=== PATIENT | female | born 1960 | race American Indian/Alaskan Native ===

== ENCOUNTER 2017-06-04 20:44 | Emergency (ER) | payer MEDICARE ==
[2017-06-04 21:30] VITALS: RESP 18
[2017-06-04 23:13] LABS: SQUAMOUS EPITHIAL 2 /hpf (0-5); URINE BACTERIA OCC (<OCC); URINE BILIRUBIN NEGATIVE (NEGATIVE); URINE BLOOD NEGATIVE (NEGATIVE); URINE CLARITY Clear (Clear); URINE COLOR Straw (YELLOW); URINE GLUCOSE (UA) NORMAL (Normal); URINE LEUKOCYTE ESTERASE NEG Leu/uL (Negative); URINE NITRATE NEGATIVE (NEGATIVE); URINE PROTEIN NEGATIVE (NEGATIVE)
[2017-06-04 23:47] VITALS: BP 140/87; PULSE 60; TEMP 98.3
[2017-06-04 23:51] VITALS: O2SAT 99
--- NOTE | 2017-06-04 23:51 | C.PDOC ---
History Of Present Illness 57 year old with medical history of hypertension, who presents to the emergency department with a complaint of left-sided mid-back pain worsen with movement and ambulation intermittently for 2 months. Denied any trauma, difficulty urinating, bloody urine, weakness, numbness or abdominal pain. PMD: Thiago Pineda MD Time Seen by Provider: 06/04/17 22:27 Chief Complaint (Nursing): Medical Clearance History Per: Patient History/Exam Limitations: no limitations Onset/Duration Of Symptoms: Other (x2-3 months) Current Symptoms Are (Timing): Still Present Past Medical History Reviewed: Historical Data, Nursing Documentation, Vital Signs Vital Signs: Last Vital Signs Temp 98.3 F 06/04/17 23:46 Pulse 60 06/04/17 23:46 Resp 18 06/04/17 23:46 BP 140/87 06/04/17 23:46 Pulse Ox 99 06/05/17 00:13 - Medical History PMH: HTN Denies: No Chronic Diseases, Chronic Kidney Disease Surgical History: Denies: No Surg Hx Family History: States: Unknown Family Hx - Social History Hx Alcohol Use: Yes (socially) Hx Substance Use: No - Immunization History Hx Influenza Vaccination: Yes Hx Pneumococcal Vaccination: No Review Of Systems Except As Marked, All Systems Reviewed And Found Negative. Gastrointestinal: Negative for: Abdominal Pain Genitourinary: Negative for: Dysuria, Hematuria Musculoskeletal: Positive for: Back Pain (left-sided midline). Negative for: Other (trauma) Neurological: Negative for: Weakness, Numbness Physical Exam - Physical Exam Appears: Well, No Acute Distress Cardiovascular: Rhythm Regular Respiratory: Normal Breath Sounds, No Decreased Breath Sounds, No Wheezing Gastrointestinal/Abdominal: Normal Exam, Soft, No Tenderness Back: No CVA Tenderness (bilateral), Vertebral Tenderness (left-sided midline radiating to left axillary area) Extremity: Normal ROM (lower), No Tenderness, No Pedal Edema Neurological/Psych: Oriented x3, Normal Speech, Normal Cognition, Normal Sensation ED Course And Treatment O2 Sat by Pulse Oximetry: 99 (RA) Pulse Ox Interpretation: Normal Medical Decision Making Medical Decision Making: Initial Impression: Back pain Initial Plan: * Motrin 600mg PO * UA On reassessment, Pain has decreased. UA reviewed Pt understand to follow up with PMD or further evaluation and return precuations d/w pt who understand and agreed with plan Scribe Attestation: Documented by Clotilde Sanchez, acting as a scribe for Shantel Peraza PA-C. Provider Scribe Attestation: All medical record entries made by the Scribe were at my direction and personally dictated by me. I have reviewed the chart and agree that the record accurately reflects my personal performance of the history, physical exam, medical decision making, and the department course for this patient. I have also personally directed, reviewed, and agree with the discharge instructions and disposition. Disposition Counseled Patient/Family Regarding: Diagnosis, Need For Followup, Rx Given - Disposition Referrals: Thiago Pineda MD [Staff Provider] - Disposition: HOME/ ROUTINE Disposition Time: 23:45 Condition: STABLE Additional Instructions: Take meds as directed Follow up with PMD Return to ER if worrse Instructions: Back Pain (ED) Forms: [facility] (roll.to) Connect (Guamanian) - Clinical Impression Clinical Impression: Back pain
== END 2017-06-05 00:07 | disposition home or self-care (01) ==
LOC: C.ER 20:44
DX: M54.9 Dorsalgia, unspecified (principal)

== ENCOUNTER 2018-02-14 10:48 | Observation (INO) | payer MEDICARE ==
[2018-02-14] MEDS ORDERED: Nitroglycerin 2% Ointment Foilpak UD TOP STA (11:47)
[2018-02-14 12:05] LABS: BASO % 0.5 % (0.0-2.0); EOS % 0.7 % (0.0-4.0); HEMOGLOBIN 13.2 g/dL (11.0-16.0); LYMPH # 1.3 K/uL (1.0-4.3); LYMPH % 21.1 % (20.0-40.0); MEAN CORPUSCULAR HEMOGLOBIN 30.6 pg (27.0-31.0); MEAN CORPUSCULAR HGB CONC 34.3 g/dL (33.0-37.0); MEAN PLATELET VOLUME 8.2 fL (7.2-11.7); MONO # 0.5 K/uL (0.0-0.8); MONO % 7.8 % (0.0-10.0); NEUT # 4.3 K/uL (1.8-7.0); NEUT % 69.9 % (50.0-75.0); RBC 4.34 Mil/uL (3.80-5.20); RED CELL DISTRIBUTION WIDTH 13.2 % (11.5-14.5); WHITE BLOOD COUNT 6.2 K/uL (4.8-10.8)
[2018-02-14 12:16] LABS: INR 1.2; PROTHROMBIN TIME 13.4 SECONDS (9.7-12.2)
[2018-02-14 12:18] LABS: ALB/GLOB RATIO 1.3 (1.0-2.1); ALBUMIN 4.5 g/dL (3.5-5.0); ALT/SGPT 25 U/L (9-52); AST/SGOT 21 U/L (14-36); BLOOD UREA NITROGEN 13 mg/dL (7-17); CALCIUM 9.4 mg/dl (8.6-10.4); GFR NON-AFRICAN AMERICAN > 60
[2018-02-14] MEDS ORDERED: Nitroglycerin 2% Ointment Foilpak UD TOP ONE (12:25)
--- NOTE | 2018-02-14 12:51 | RAD ---
Date of service: 02/14/2018 PROCEDURE: CHEST RADIOGRAPH, 1 VIEW HISTORY: CP COMPARISON: Comparison made with chest radiograph and CTA chest both dated 06/09/2016. FINDINGS: LUNGS: Previously noted minor venous congestive changes improved. No focal consolidation. PLEURA: No pneumothorax or pleural fluid seen. CARDIOVASCULAR: Normal. OSSEOUS STRUCTURES: Mild scoliosis convex right mid to lower thoracic region. Postoperative anterior fixation bilateral laminectomy and posterior fixation lower cervical region. VISUALIZED UPPER ABDOMEN: . Normal. OTHER FINDINGS: None. IMPRESSION: No acute consolidation. See above discussion for additional findings.
[2018-02-14 12:53] LABS: CK-MB 0.57 ng/mL (0.0-3.38)
--- NOTE | 2018-02-14 12:55 | C.PDOC ---
History Of Present Illness 57 year old female patient presents to the ER with c/o 20 minute episode chest pain and pressure in the mid chest with diaphoresis and SOB yesterday. Patient reports she went to see her PMD Dr. Thiago Pineda and feels better. Patient is referred to the ER for further evaluation. Patient denies nausea, vomiting, diarrhea and SOB. Time Seen by Provider: 02/14/18 11:21 Chief Complaint (Nursing): Chest Pain History Per: Patient History/Exam Limitations: no limitations Onset/Duration Of Symptoms: Days (x1) Current Symptoms Are (Timing): Still Present Quality: Pressure Past Medical History Reviewed: Historical Data, Nursing Documentation, Vital Signs Vital Signs: Last Vital Signs Temp 97.9 F 02/14/18 10:53 Pulse 60 02/14/18 10:53 Resp 15 02/14/18 12:28 BP 131/78 02/14/18 12:28 Pulse Ox 99 02/14/18 12:28 - Medical History PMH: HTN Family History: States: Unknown Family Hx - Social History Hx Alcohol Use: Yes (socially) Hx Substance Use: No - Immunization History Hx Influenza Vaccination: Yes Hx Pneumococcal Vaccination: No Review Of Systems Except As Marked, All Systems Reviewed And Found Negative. Constitutional: Positive for: Sweats Cardiovascular: Positive for: Chest Pain (feels better ) Respiratory: Negative for: Shortness of Breath Gastrointestinal: Negative for: Nausea, Vomiting, Diarrhea Physical Exam - Physical Exam Appears: Well, Non-toxic, No Acute Distress Skin: Normal Color, Warm, Dry Head: Normacephalic Eye(s): bilateral: Normal Inspection, EOMI Nose: Normal Oral Mucosa: Moist Throat: Normal Chest: Symmetrical, No Deformity Cardiovascular: Rhythm Regular Respiratory: Normal Breath Sounds Extremity: Normal ROM (x4) Neurological/Psych: Oriented x3, Normal Speech Gait: Steady ED Course And Treatment - Laboratory Results Result Diagrams: 02/14/18 12:01 02/14/18 12:01 ECG: Interpreted By Me, Viewed By Me ECG Rhythm: Sinus Rhythm ECG Interpretation: Normal, No Acute Changes Rate From EC O2 Sat by Pulse Oximetry: 99 (RA) Pulse Ox Interpretation: Normal - Other Rad chest X-Ray: Read By Radiologist Interpretation: Accession No. : [id number]. Patient Name / ID : JYOTHI SHERMAN / [id number]. Exam Date : 02/14/2018 11:50:24 ( Approved ). Study Comment : Sex / Age : F / 57Y. Creator : Eddi Rendon MD. Dictator : Eddi Rendon MD. Chaperon : Coffee Attendant : Eddi Rendon MD. Approver2 : Report Date : 02/14/2018 12:49:23. My Comment : . Date of service: 02/14/2018. PROCEDURE: CHEST RADIOGRAPH, 1 VIEW. HISTORY: CP. COMPARISON: Comparison made with chest radiograph and CTA chest both dated 06/09/2016. FINDINGS: LUNGS: Previously noted minor venous congestive changes improved. No focal consolidation. PLEURA: No pneumothorax or pleural fluid seen. CARDIOVASCULAR: Normal. OSSEOUS STRUCTURES: Mild scoliosis convex right mid to lower thoracic region. Postoperative anterior fixation bilateral laminectomy and posterior fixation lower cervical region. VISUALIZED UPPER ABDOMEN: . Normal. OTHER FINDINGS: None. IMPRESSION: No acute consolidation. See above discussion for additional findings. Progress Note: Impression: referred here from PMD due to chest pain with diaphoresis and SOB. Plans: -- EKG. -- chem lab. -- blood work. -- CXR. -- aspirin. -- nitroglycerin. Reassess: Patient is resting comfortably, is no longer having chest pain or shortness of breath. Patient has no risk factors for pulmonary emboli or DVT. Clinical presentation is not suggestive of aortic dissection. Patient is being discharged home and is being advised to follow up with physician in 1-2 days. Disposition - Disposition Disposition: HOSPITALIZED Disposition Time: 13:53 Condition: FAIR Forms: [facility] (Croatian) - Clinical Impression Clinical Impression: Chest pain - PA / ASSOCIATE PROFESSOR OF FORESTRY / Resident Statement / has reviewed & agrees with the documentation as recorded. - Scribe Statement The provider has reviewed the documentation as recorded by the Erick Oh Do All medical record entries made by the Scribe were at my direction and personally dictated by me. I have reviewed the chart and agree that the record accurately reflects my personal performance of the history, physical exam, medical decision making, and the department course for this patient. I have also personally directed, reviewed, and agree with the discharge instructions and disposition. Decision To Admit - Pt Status Changed To: Hospital Disposition Of: Observation - . Bed Request Type: Telemetry Admitting Physician: Thiago Pineda Patient Diagnosis: Chest pain
[2018-02-14 17:52] VITALS: RESP 20
[2018-02-14] MEDS: Enoxaparin 30 mg Syringe SC SCH (21:14)
[2018-02-15 08:49] VITALS: PULSE 55; TEMP 98; O2SAT 97
[2018-02-15] MEDS: Enoxaparin 30 mg Syringe SC SCH (09:39)
[2018-02-15 09:41] VITALS: BP 135/85
--- NOTE | 2018-02-15 11:07 | CP.PCM.HP ---
History of Present Illness - History of Present Illness History of Present Illness: 57 y/o female , h/o HTN, GERD, Cervical radiculopathy admitted for chest pain 1 days. No fever. No SOB. No injury. Present on Admission - Present on Admission History of DVT/PE: No History of Uncontrolled Diabetes: No Urinary Catheter: No Decubitus Ulcer Present: No Review of Systems - Review of Systems All systems: reviewed and no additional remarkable complaints except (No fever, No injury, No SOB, no weight loss) Past Patient History - Infectious Disease Hx of Infectious Diseases: None - Tetanus Immunizations Tetanus Immunization: Unknown - Past Medical History & Family History Past Medical History?: Yes - Past Social History Smoking Status: Never Smoked Chewing Tobacco Use: No Cigar Use: No Alcohol: None Drugs: Denies Home Situation {Lives}: With Family - CARDIAC Hx Hypertension: Yes - PULMONARY Hx Respiratory Disorders: No - NEUROLOGICAL Hx Neurological Disorder: No - HEENT Hx HEENT Problems: No - RENAL Hx Chronic Kidney Disease: No - ENDOCRINE/METABOLIC Hx Endocrine Disorders: No - HEMATOLOGICAL/ONCOLOGICAL Hx Blood Disorders: No Hx Blood Transfusions: No - INTEGUMENTARY Hx Dermatological Problems: No - MUSCULOSKELETAL/RHEUMATOLOGICAL Hx Musculoskeletal Disorders: No Hx Falls: No - GASTROINTESTINAL Hx Gastrointestinal Disorders: No - GENITOURINARY/GYNECOLOGICAL Hx Genitourinary Disorders: No - PSYCHIATRIC Hx Substance Use: No - SURGICAL HISTORY Hx Surgeries: Yes Hx Hysterectomy: Yes Hx Tubal Ligation: Yes Other/Comment: right ankle surgery and 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 - ANESTHESIA Hx Anesthesia: Yes Hx Anesthesia Reactions: No Hx Malignant Hyperthermia: No Meds Allergies/Adverse Reactions: Allergies Allergy/AdvReac Type Severity Reaction Status Date / Time No Known Allergies Allergy Verified 02/14/18 15:09 Physical Exam - Constitutional Appears: No Acute Distress - Head Exam Head Exam: NORMAL INSPECTION - Eye Exam Eye Exam: Normal appearance - ENT Exam ENT Exam: Normal Exam - Respiratory Exam Respiratory Exam: NORMAL BREATHING PATTERN - Cardiovascular Exam Cardiovascular Exam: REGULAR RHYTHM - GI/Abdominal Exam GI & Abdominal Exam: Soft - Rectal Exam Rectal Exam: Deferred - Extremities Exam Extremities exam: Positive for: normal inspection (walk with cane) - Back Exam Back exam: tenderness - Neurological Exam Neurological exam: Abnormal Gait - Psychiatric Exam Psychiatric exam: Normal Mood Results - Vital Signs Recent Vital Signs: Last Vital Signs Temp 98.0 F 02/15/18 07:47 Pulse 55 L 02/15/18 07:47 Resp 20 02/15/18 07:47 BP 135/85 02/15/18 09:39 Pulse Ox 97 02/15/18 07:47 - Labs Result Diagrams: 02/14/18 12:01 02/14/18 12:01 Labs: Laboratory Results - last 24 hr 02/14/18 02/14/18 02/14/18 12:01 12:01 12:01 WBC 6.2 RBC 4.34 Hgb 13.2 Hct 38.6 MCV 89.0 MCH 30.6 MCHC 34.3 RDW 13.2 Plt Count 259 MPV 8.2 Neut % (Auto) 69.9 Lymph % (Auto) 21.1 [place] % (Auto) 7.8 Eos % (Auto) 0.7 Baso % (Auto) 0.5 Neut # (Auto) 4.3 Lymph # (Auto) 1.3 [place] # (Auto) 0.5 Eos # (Auto) 0.0 Baso # (Auto) 0.0 PT 13.4 H INR 1.2 APTT 40 H Sodium 143 Potassium 3.6 Chloride 105 Carbon Dioxide 28 Anion Gap 13 BUN 13 Creatinine 0.7 Est GFR ( Amer) > 60 Est GFR (Non-Af Amer) > 60 POC Glucose (mg/dL) Random Glucose 111 H Calcium 9.4 Total Bilirubin 0.7 AST 21 ALT 25 Alkaline Phosphatase 77 Total Creatine Kinase 83 CK-MB (Mass) 0.57 Troponin I < 0.0120 Total Protein 7.8 Albumin 4.5 Globulin 3.3 Albumin/Globulin Ratio 1.3 02/14/18 02/14/18 02/15/18 19:47 21:35 02:20 WBC RBC Hgb Hct MCV MCH MCHC RDW Plt Count MPV Neut % (Auto) Lymph % (Auto) [place] % (Auto) Eos % (Auto) Baso % (Auto) Neut # (Auto) Lymph # (Auto) [place] # (Auto) Eos # (Auto) Baso # (Auto) PT INR APTT Sodium Potassium Chloride Carbon Dioxide Anion Gap BUN Creatinine Est GFR ( Amer) Est GFR (Non-Af Amer) POC Glucose (mg/dL) 91 Random Glucose Calcium Total Bilirubin AST ALT Alkaline Phosphatase Total Creatine Kinase CK-MB (Mass) Troponin I < 0.0120 0.0230 Total Protein Albumin Globulin Albumin/Globulin Ratio - EKG Data EKG Interpreted by: ER Physician EKG shows normal: Sinus rhythm Rate: Normal Assessment & Plan (1) Chest pain Status: Acute (2) HTN (hypertension) Status: Chronic (3) GERD (gastroesophageal reflux disease) Status: Chronic (4) Cervical radiculopathy Status: Chronic - Assessment and Plan (Free Text) Assessment: A/P: Continue medications. Cardiology consult Dr. Tripp - Date & Time Date: 02/15/18 Time: 11:11
--- NOTE | 2018-02-15 15:11 | CP.PCM.CON ---
History of Present Illness - History of Present Illness History of Present Illness: I was asked to see patient by Dr Pineda. Patient is a 57 year old female with HTN, hypercholesterolemia who presents with chest pain. Patient was at home and developed chest discomfort at rest. She states symptoms occurred twice. she denies dyspnea. The patient walks with a cane. Review of Systems - Constitutional Constitutional: absent: As Per HPI, Anorexia, Chills, Daytime Sleepiness, Excessive Sweating, Fatigue, Fever, Frequent Falls, Headache, Increased A ppetite, Lethargy, Malaise, Night Sweats, Snoring, Sleep Apnea, Weight Gain, Weight Loss, Weakness, Other - EENT Eyes: absent: As Per HPI, Blind Spots, Blurred Vision, Change in Vision, Decreased Night Vision, Diplopia, Discharge, Dry Eye, Exophthalmos, Floaters, Irritation, Itchy Eyes, Loss of Peripheral Vision, Pain, Photophobia, Requires Corrective Lenses, Sees Flashes, Spots in Vision, Tunnel Vision, Other Visual Disturbances, Loss of Vision, Other Ears: absent: As Per HPI, Decreased Hearing, Ear Discharge, Ear Pain, Tinnitus, Abnormal Hearing, Disequilibrium, Dizziness, Other Nose/Mouth/Throat: absent: As Per HPI, Epistaxis, Nasal Congestion, Nasal Discharge, Nasal Obstruction, Nasal Trauma, Nose Pain, Post Nasal Drip, Sinus Pain, Sinus Pressure, Bleeding Gums, Change in Voice, Dental Pain, Dry Mouth, Dysphagia, Halitosis, Hoarsness, Lip Swelling, Mouth Lesions, Mouth Pain, Odynophagia, Sore Throat, Throat Swelling, Tongue Swelling, Facial Pain, Neck Pain, Neck Mass, Other - Breasts Breasts: absent: As Per HPI, Change in Shape, Mass, Pain, Nipple Discharge, Nipple Inversion, Skin Changes, Swelling, Other - Cardiovascular Cardiovascular: Chest Pain - Respiratory Respiratory: absent: As Per HPI, Cough, Dyspnea, Hemoptysis, Dyspnea on Exertion, Wheezing, Snoring, Stridor, Pain on Inspiration, Chest Congestion, Excessive Mucous Production, Change in Mucous Color, Pain with Coughing, Other - Gastrointestinal Gastrointestinal: absent: As Per HPI, Abdominal Pain, Belching, Bloating, Change in Bowel Habits, Change in Stool Character, Coffee Ground Emesis, Constipation, Cramping, Diarrhea, Dyspepsia, Dysphagia, Early Satiety, Excessive Flatus, Fecal Incontinence, Heartburn, Hematemesis, Hematochezia, Loose Stools, Melena, Nausea, Odynophagia, Temesmus, Vomiting, Other - Genitourinary Genitourinary: absent: As Per HPI, Change in Urinary Stream, Difficulty Urinating, Dysuria, Flank Pain, Hematuria, Pyuria, Nocturia, Urinary Incontinence, Urinary Frequency, Urinary Hesitance, Urinary Urgency, Voiding Freq/Small Amts, Freq UTI, Hx Renal/Bladder Calculi, Hx /Renal Surgery, Bladder Distension, Other - Musculoskeletal Musculoskeletal: absent: As Per HPI, Abnormal Gait, Arthralgias, Atrophy, Back Pain, Deformity, Joint Swelling, Limited Range of Motion, Loss of Height, Muscle Cramps, Muscle Weakness, Myalgias, Neck Pain, Numbness, Radiating Pain into Limb, Stiffness, Tingling, Other - Integumentary Integumentary: absent: As Per HPI, Acne, Alopecia, Bleeding Lesions, Change in Hair, Change in Nails, Change in Pigmentation, Changing Lesions, Dry Skin, Erythema, Furuncle, Hirsutism, Lesions, New Lesions, Non-Healing Lesions, Photosensitivity, Pruritus, Rash, Skin Pain, Skin Ulcer, Sores, Striae, Swelli ng, Unusual Bruising, Wounds, Jaundice, Other - Neurological Neurological: absent: As Per HPI, Abnormal Gait, Abnormal Hearing, Abnormal Movements, Abnormal Speech, Behavioral Changes, Burning Sensations, Confusion, Convulsions, Disequilibrium, Dizziness, Numbness, Focal Weakness, Frequent Falls, Headaches, Lack of Coordination, Loss of Vision, Memory Loss, P aresthesias, Radicular Pain, Restless Legs, Sensory Deficit, Syncope, Tingling, Tremor, Vertigo, Weakness, Other Visual Disturbances, Other - Psychiatric Psychiatric: absent: As Per HPI, Abnormal Sleep Pattern, Anhedonia, Anxiety, Auditory Hallucinations, Behavioral Changes, Change in Appetite, Change in Libido, Confusion, Depression, Difficulty Concentrating, Hallucinations, Homicidal Ideation, Hopelessness, Irritability, Memory Loss, Mood Swings, Panic Attacks, Paranoia, Suicidal Ideation, Visual Hallucinations, Tactile Hallucinations, Other - Endocrine Endocrine: absent: As Per HPI, Change in Body Appearance, Change in Libido, Cold Intolorance, Deepening of Voice, Excessive Sweating, Fatigue, Flushing, Heat In tolorance, Increase in Ring/Shoe/Hat Size, Palpitations, Polydipsia, Polyphagia, Polyuria, Other - Hematologic/Lymphatic Hematologic: absent: As Per HPI, Easy Bleeding, Easy Bruising, Lymphadenopathy, Other Past Patient History - Infectious Disease Hx of Infectious Diseases: None - Tetanus Immunizations Tetanus Immunization: Unknown - Past Medical History & Family History Past Medical History?: Yes - Past Social History Smoking Status: Never Smoked Chewing Tobacco Use: No Cigar Use: No Alcohol: None Drugs: Denies Home Situation {Lives}: With Family - CARDIAC Hx Hypertension: Yes - PULMONARY Hx Respiratory Disorders: No - NEUROLOGICAL Hx Neurological Disorder: No - HEENT Hx HEENT Problems: No - RENAL Hx Chronic Kidney Disease: No - ENDOCRINE/METABOLIC Hx Endocrine Disorders: No - HEMATOLOGICAL/ONCOLOGICAL Hx Blood Disorders: No Hx Blood Transfusions: No - INTEGUMENTARY Hx Dermatological Problems: No - MUSCULOSKELETAL/RHEUMATOLOGICAL Hx Musculoskeletal Disorders: No Hx Falls: No - GASTROINTESTINAL Hx Gastrointestinal Disorders: No - GENITOURINARY/GYNECOLOGICAL Hx Genitourinary Disorders: No - PSYCHIATRIC Hx Substance Use: No - SURGICAL HISTORY Hx Surgeries: Yes Hx Hysterectomy: Yes Hx Tubal Ligation: Yes Other/Comment: right ankle surgery and 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 - ANESTHESIA Hx Anesthesia: Yes Hx Anesthesia Reactions: No Hx Malignant Hyperthermia: No Meds Allergies/Adverse Reactions: Allergies Allergy/AdvReac Type Severity Reaction Status Date / Time No Known Allergies Allergy Verified 02/14/18 15:09 - Medications Medications: Current Medications Clopidogrel Bisulfate (Plavix) 75 mg PO DAILY [facility] Last Admin: 02/15/18 09:39 Dose: 75 mg Enoxaparin Sodium (Lovenox) 30 mg SC Q12 [facility] Last Admin: 02/15/18 09:39 Dose: 30 mg Influenza Virus Vaccine (Fluzone Quad [id number]) 60 mcg IM .ONCE ONE Stop: 02/16/18 10:01 Losartan Potassium (Cozaar) 100 mg PO DAILY [facility] Last Admin: 02/15/18 09:39 Dose: 100 mg Metoprolol Tartrate (Lopressor) 25 mg PO BID [facility] Last Admin: 02/15/18 09:39 Dose: 25 mg Rosuvastatin Calcium (Crestor) 10 mg PO HS [facility] Last Admin: 02/14/18 21:14 Dose: 10 mg Physical Exam - Constitutional Appears: Non-toxic - Head Exam Head Exam: NORMAL INSPECTION - Eye Exam Eye Exam: Normal appearance - ENT Exam ENT Exam: Mucous Membranes Moist - Neck Exam Neck exam: Positive for: Full Rom - Respiratory Exam Respiratory Exam: NORMAL BREATHING PATTERN - Cardiovascular Exam Cardiovascular Exam: REGULAR RHYTHM - GI/Abdominal Exam GI & Abdominal Exam: Normal Bowel Sounds - Rectal Exam Rectal Exam: Deferred - Extremities Exam Extremities exam: Positive for: pedal edema - Back Exam Back exam: NORMAL INSPECTION - Neurological Exam Neurological exam: Alert, Oriented x3 - Psychiatric Exam Psychiatric exam: Normal Affect - Skin Skin Exam: Normal Color Results - Vital Signs Recent Vital Signs: Last Vital Signs Temp 98.0 F 02/15/18 07:47 Pulse 55 L 02/15/18 07:47 Resp 20 02/15/18 07:47 BP 135/85 02/15/18 09:39 Pulse Ox 97 02/15/18 07:47 - Labs Result Diagrams: 02/14/18 12:01 02/14/18 12:01 Labs: Laboratory Results - last 24 hr 02/14/18 02/14/18 02/15/18 19:47 21:35 02:20 POC Glucose (mg/dL) 91 Troponin I < 0.0120 0.0230 - EKG Data EKG Interpreted by: Myself EKG shows normal: Sinus rhythm Assessment & Plan (1) Hypercholesteremia Assessment and Plan: continue therapy. discussed risk factors Status: Acute (2) Chest pain Assessment and Plan: ruled out for MD. can d/c home. outpatient stress test Status: Acute (3) HTN (hypertension) Assessment and Plan: blood pressure control Status: Chronic
[2018-02-16] MEDS ORDERED: Influenza Vaccine 60 MCG/0.5 ML SYR (3 yr & up) IM ONE (10:00)
--- NOTE | 2018-02-16 21:00 | CARD ---
APPROVED REPORT Date of service: 02/14/2018 EKG Measurement Heart [id number] <Conclusion> Normal sinus rhythm Possible Left atrial enlargement Borderline ECG
== END 2018-02-15 15:59 | disposition home or self-care (01) ==
LOC: C.ER 10:48 → C.9E 13:52 → C.5S 17:19
PROVIDERS: ADMIT Internal Medicine; ATTEND Internal Medicine
DX: R07.9 Chest pain, unspecified (principal); K21.9 Gastro-esophageal reflux disease without esophagitis; I10 Essential (primary) hypertension; E78.00 Pure hypercholesterolemia, unspecified; Z98.51 Tubal ligation status
CPT/HCPCS: 36415; 71045; 80053; 82550; 82553; 82948; 84484; 85025; 85610; 85730; 99285; G0378; J1650